=== PATIENT | female | born 1960 ===

== ENCOUNTER → 2019-10-01 | Outpatient (CLI) | payer MEDICARE, MEDICAID ==
[2019-10-01 18:00] LABS: HEMATOCRIT 35.2 % (37.0-47.0); HEMOGLOBIN 10.5 g/dL (12.5-16.0); MEAN PLATELET VOLUME 11.5 fl (7.4-10.4); RED BLOOD COUNT 3.75 M/mm3 (4.10-5.30); WHITE BLOOD COUNT 5.4 K/mm3 (4.8-10.8)
[2019-10-01 18:19] LABS: PROTHROMBIN TIME 27.8 SECONDS (9.0-12.0)
[2019-10-01 18:22] LABS: ALBUMIN 4.3 g/dL (3.4-4.8)
[2019-10-01 18:24] LABS: TOTAL PROTEIN 7.6 g/dL (6.2-8.1)
[2019-10-01 18:26] LABS: TOTAL BILIRUBIN 0.2 mg/dL (0.2-1.2)
== END ==
LOC: LAB 17:42
PROVIDERS: Family Medicine
DX: I10 Essential (primary) hypertension (principal); E11.9 Type 2 diabetes mellitus without complications; G47.33 Obstructive sleep apnea (adult) (pediatric); M25.551 Pain in right hip; M25.552 Pain in left hip; Z87.898 Personal history of other specified conditions; Z98.890 Other specified postprocedural states

== ENCOUNTER → 2019-11-25 | Outpatient (CLI) | payer MEDICARE, MEDICAID ==
[2019-11-25 09:48] LABS: HEMOGLOBIN 9.4 g/dL (12.5-16.0); MEAN PLATELET VOLUME 11.2 fl (7.4-10.4); RED BLOOD COUNT 3.46 M/mm3 (4.10-5.30); RED CELL DISTRIBUTION WIDTH 16.1 % (11.5-14.5); WHITE BLOOD COUNT 5.2 K/mm3 (4.8-10.8)
[2019-11-25 09:53] LABS: PROTHROMBIN TIME 30.5 SECONDS (9.0-12.0)
[2019-11-25 21:59] LABS: FOLATE (FOLIC ACID) 4.2 ng/mL (7.0-31.4)
== END ==
LOC: LAB 09:18
PROVIDERS: Family Medicine
DX: D64.9 Anemia, unspecified (principal); Z98.890 Other specified postprocedural states

== ENCOUNTER → 2019-12-09 | Outpatient (CLI) | payer MEDICARE, MEDICAID ==
[2019-12-09 11:22] LABS: PROTHROMBIN TIME 25.7 SECONDS (9.0-12.0)
[2019-12-09 22:46] LABS: FOLATE (FOLIC ACID) 7.5 ng/mL (7.0-31.4)
== END ==
LOC: LAB 10:44
PROVIDERS: Family Medicine
DX: D64.9 Anemia, unspecified (principal); Z98.890 Other specified postprocedural states

== ENCOUNTER → 2020-02-22 | Outpatient (CLI) | payer MEDICARE, MEDICAID | LOC: LAB 14:33 | PROVIDERS: Family Medicine | DX: Z98.890 Other specified postprocedural states (principal) ==

== ENCOUNTER → 2020-02-22 | Outpatient (CLI) | payer MEDICARE, MEDICAID | LOC: MAMMO 15:15 | DX: Z12.31 Encounter for screening mammogram for malignant neoplasm of breast (principal) ==

== ENCOUNTER → 2020-03-22 | Outpatient (CLI) | payer MEDICARE, MEDICAID ==
[2020-03-22 15:32] LABS: EOS # 0.1 (0.04-0.40); EOS % 1.5 % (1.0-5.0); HEMATOCRIT 33.3 % (37.0-47.0); HEMOGLOBIN 9.8 g/dL (12.5-16.0); MEAN CELL VOLUME 91 fl (78-100); MEAN CORPUSCULAR HEMOGLOBIN 27 pg (27-31); MEAN PLATELET VOLUME 11.7 fl (7.4-10.4); MONO # 0.4 (0.20-0.80); PLATELET COUNT 193 K/mm3 (130-400); RED BLOOD COUNT 3.65 M/mm3 (4.10-5.30); WHITE BLOOD COUNT 4.6 K/mm3 (4.8-10.8)
[2020-03-22 15:37] LABS: MEAN CORPUSCULAR HGB CONC 29 g/dL (33-37); RED CELL DISTRIBUTION WIDTH 18.1 % (11.5-14.5)
[2020-03-22 15:50] LABS: POTASSIUM 4.6 mmol/L (3.5-5.1)
== END ==
LOC: LAB 15:19
PROVIDERS: Internal Medicine Cardiovascular Disease
DX: I87.2 Venous insufficiency (chronic) (peripheral) (principal); I87.1 Compression of vein; I10 Essential (primary) hypertension; L97.301 Non-pressure chronic ulcer of unspecified ankle limited to breakdown of skin; D63.8 Anemia in other chronic diseases classified elsewhere

== ENCOUNTER → 2020-04-04 | Outpatient (CLI) | payer MEDICARE, MEDICAID ==
[2020-04-04 13:54] LABS: POTASSIUM 4.8 mmol/L (3.5-5.1)
[2020-04-04 13:55] LABS: CALCIUM 8.7 mg/dL (8.3-10.5)
[2020-04-04 14:00] LABS: PROTHROMBIN TIME 25.1 SECONDS (9.0-12.0)
== END ==
LOC: LAB 13:31
PROVIDERS: Family Medicine
DX: E11.9 Type 2 diabetes mellitus without complications (principal); Z98.890 Other specified postprocedural states